=== PATIENT | male | born 1990 | race Hispanic/Latino ===

== ENCOUNTER 2019-01-21 06:56 | Emergency (ER) | payer SELFPAY ==
--- NOTE | 2019-01-21 08:33 | CT ---
Exam: CT brain PROVIDED CLINICAL HISTORY: Nausea, throat pain and swelling COMPARISON: None FINDINGS: The ventricular system is normal in size and morphology. No evidence for intracranial hemorrhage or mass effect. The extracranial soft tissues and osseous structures demonstrate an unremarkable CT appearance. Small right parietal scalp lipoma. IMPRESSION: No evidence for intracranial hemorrhage or mass effect.
--- NOTE | 2019-01-21 08:39 | CT ---
EXAM: CT Facial Bones WO Con PROVIDED CLINICAL HISTORY: Pain and swelling COMPARISON: None FINDINGS: There is no evidence for fracture. Mucous retention cyst right maxillary sinus. The globes and other orbital contents appear normal. There is segmentation anomaly involving the C1 and C2 segments, incompletely evaluated on the basis of this study. IMPRESSION: 1. No evidence for fracture. 2. 

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
[2019-01-21] MEDS ORDERED: ISOVUE-370 76%-LOCM 1 ML ONE (15:16)
== END 2019-01-21 09:39 | disposition home or self-care (01) ==
LOC: ERS 06:56
DX: M54.2 Cervicalgia (principal); Y04.0XXA Assault by unarmed brawl or fight, initial encounter
CPT/HCPCS: 70450; 70486; 70491; 72125; 96360; 96361; Q9966

== ENCOUNTER 2019-01-28 10:03 | Emergency (ER) | payer SELFPAY ==
[2019-01-28] MEDS ORDERED: Dexamethasone 4 MG TAB ONE (10:30)
== END 2019-01-28 10:47 | disposition home or self-care (01) ==
LOC: ERS 10:03
DX: J02.9 Acute pharyngitis, unspecified (principal)
CPT/HCPCS: 99283; J8540